=== PATIENT | female | born 1995 | race African-American/Black ===

== ENCOUNTER 2021-12-18 11:04 | Emergency (ER) | payer SELFPAY ==
[~2021-12-18] VITALS: Ht 165.1 cm; Wt 73.0 kg
[2021-12-18] MEDS ORDERED: LIDOCAINE HCL/PF 1% 10 MG/ML 5ML VIAL INFIL ONE (11:45)
[2021-12-18] MEDS ORDERED: BACITRACIN ZINC OINT UDPKT TOP ONE (11:45)
[2021-12-18] MEDS ORDERED: KETOROLAC 30MG/ML VIAL IM ONE (11:45)
[2021-12-18] MEDS ORDERED: NAPR-681 MT (14:38)
[2021-12-18] MEDS ORDERED: LIDOCAINE HCL 1% 20ML VIAL (Pyxis) INJ INFIL ONE (14:45)
[2021-12-18 15:16] VITALS: BP 142/85
== END 2021-12-18 15:44 | disposition home or self-care (01) ==
LOC: ER 11:42
DX: S01.01XA Laceration without foreign body of scalp, initial encounter (principal); X99.0XXA Assault by sharp glass, initial encounter; S46.812A Strain of other muscles, fascia and tendons at shoulder and upper arm level, left arm, initial encounter; S56.812A Strain of other muscles, fascia and tendons at forearm level, left arm, initial encounter; S66.812A Strain of other specified muscles, fascia and tendons at wrist and hand level, left hand, initial encounter; S66.811A Strain of other specified muscles, fascia and tendons at wrist and hand level, right hand, initial encounter; R03.0 Elevated blood-pressure reading, without diagnosis of hypertension; F10.129 Alcohol abuse with intoxication, unspecified; Y90.9 Presence of alcohol in blood, level not specified; Y93.89 Activity, other specified; Y92.89 Other specified places as the place of occurrence of the external cause
CPT/HCPCS: 12002; 70450; 70486; 72125; 73030; 73090; 73130; 81025; 96372; 99284; J1885; J3490

== ENCOUNTER 2021-12-25 14:10 | Emergency (ER) | payer SELFPAY ==
[~2021-12-25] VITALS: Ht 165.1 cm; Wt 89.0 kg
[~2021-12-25 14:10] MED LIST: NAPR-681 MT
[2021-12-25 14:27] VITALS: BP 121/74
== END 2021-12-25 16:03 | disposition home or self-care (01) ==
LOC: ER 14:10
DX: Z48.02 Encounter for removal of sutures (principal)
CPT/HCPCS: 99281; Z7610